=== PATIENT | female | born 1990 | race Caucasian/White ===

== ENCOUNTER 2017-03-28 18:05 | Emergency (ER) | payer OTHER ==
[2017-03-28 18:10] VITALS: RESP 16; TEMP 98.1
[2017-03-28] MEDS ORDERED: NS 1,000 ML IV ONE (18:24)
[2017-03-28] MEDS ORDERED: ONDANSETRON 4 MG/2 ML VIAL IVP ONE (18:25)
--- NOTE | 2017-03-28 18:39 | EDPHY ---
H & P Time Seen by Provider: 03/28/17 18:14 HPI/ROS: CHIEF COMPLAINT: HISTORY OF PRESENT ILLNESS: The patient is a 26-year-old female, , 14 weeks , presenting with continued vomiting since yesterday. Unable to tolerate oral fluids or food today. Associated with generalized weakness. She was seen at a clinic and had blood work done. She denies abdominal pain , diarrhea, vaginal bleeding, or fever. LMP December 27, 2016. REVIEW OF SYSTEMS: A comprehensive 10 point review of systems is otherwise negative aside from elements mentioned in the history of present illness. Past Medical/Surgical History: G1PO. Social History: , at bedside. [employer] student. Smoking Status: Never smoked Physical Exam: General Appearance: Alert, pleasant Eyes: Pupils equal and round, no conjunctival pallor or injection ENT, Mouth: Mucous membranes moist Neck: Normal inspection Respiratory: Lungs are clear to auscultation Cardiovascular: Regular rate and rhythm Gastrointestinal: Abdomen is soft and non-tender Neurological: A&O, nonfocal, normal gait Skin: Warm and dry, no rash Extremities: Nontender, no pedal edema Psychiatric: Mood and affect normal Constitutional: Initial Vital Signs Temperature (C) 36.7 C 03/28/17 18:08 Heart Rate 98 03/28/17 18:08 Respiratory Rate 16 03/28/17 18:08 Blood Pressure 100/62 03/28/17 18:08 O2 Sat (%) 100 03/28/17 18:08 O2 Delivery Mode Room Air Allergies/Adverse Reactions: No Known Allergies Allergy (Unverified 03/28/17 18:30) Home Medications: Medication Instructions Recorded Ondansetron Odt [Zofran Odt 4 mg 4 mg PO Q4 PRN #6 tab 03/28/17 (*)] Medical Decision Making ED Course/Re-evaluation: Patient, 14 weeks , presents with two days of vomiting. Patient received IV Zofran and fluids in the ED. She felt much better and was able to tolerate oral fluids well. Abdomen remained soft and nontender. She was discharged home with Zofran for ongoing symptoms. Differential Diagnosis: Differential diagnosis includes though it is not limited to appendicitis, cholecystitis, diverticulitis, pyelonephritis, bowel perforation, small bowel obstruction. - Data Points Laboratory Results: Laboratory Results 03/28/17 18:40 03/28/17 18:40 Sodium 136 mEq/L mEq/L (134-144) Potassium 3.9 mEq/L mEq/L (3.5-5.2) Chloride 105 mEq/L mEq/L (97-110) Carbon Dioxide 20 mEq/l L mEq/l (22-31) Anion Gap 11 mEq/L mEq/L (8-16) BUN 5 mg/dL L mg/dL (7-23) Creatinine 0.5 mg/dL L mg/dL (0.6-1.0) Estimated GFR > 60 Glucose 96 mg/dL mg/dL (70-100) Calcium 9.7 mg/dL mg/dL (8.5-10.4) Medications Given: Discontinued Medications Sodium Chloride (Ns) 1,000 mls @ 0 mls/hr IV ONCE ONE; Wide Open PRN Reason: Protocol Stop: 03/28/17 18:25 Last Admin: 03/28/17 18:45 Dose: 1,000 mls Ondansetron HCl (Zofran) 4 mg IVP EDNOW ONE Stop: 03/28/17 18:26 Last Admin: 03/28/17 18:45 Dose: 4 mg Departure - Departure Disposition: Home, Routine, Self-Care Clinical Impression: Vomiting Qualifiers: Vomiting type: unspecified Vomiting Intractability: non-intractable Nausea presence: with nausea Qualified Code(s): R11.2 - Nausea with vomiting, unspecified Condition: Good Instructions: Nausea and Vomiting in (ED) Additional Instructions: Take Zofran as directed for nausea and vomiting. Return to the Emergency Department for new or worsening symptoms. You have been referred to the talent solutions manager [employer] Developer, please schedule an appointment for any ongoing issues. You have also been referred to a primary care physician, please followup as needed. Referrals: Rosie Mijares MD [Medical Doctor] - As per Instructions ([employer]) Prescriptions: Ondansetron Odt [Zofran Odt 4 mg (*)] 4 mg PO Q4 PRN #6 tab PRN Reason: Nausea Report Scribed for: Marian Rasheed Report Scribed by: Sasha Jones Date of Report: 03/28/17 Time of Report: 18:33 Physician Review and Approval Statement: 03/28/17 18:33 Portions of this note were transcribed by a medical billing specialist. I personally performed the history, physical exam, and medical decision-making; and confirmed the accuracy of the information in the transcribed note.
[2017-03-28 19:12] LABS: ANION GAP 11 mEq/L (8-16); CALCIUM 9.7 mg/dL (8.5-10.4); CARBON DIOXIDE 20 mEq/l (22-31); CHLORIDE 105 mEq/L (97-110); CREATININE 0.5 mg/dL (0.6-1.0); GLOMERULAR FILTRATION RATE > 60; GLUCOSE 96 mg/dL (70-100); POTASSIUM 3.9 mEq/L (3.5-5.2); SODIUM 136 mEq/L (134-144)
[2017-03-28 19:46] VITALS: BP 96/61; PULSE 78; O2SAT 97
== END 2017-03-28 19:40 | disposition home or self-care (01) ==
DX: O21.1 Hyperemesis gravidarum with metabolic disturbance (principal); E86.9 Volume depletion, unspecified; Z3A.14 14 weeks gestation of pregnancy
CPT/HCPCS: 96374; J2405

== ENCOUNTER 2017-08-07 22:57 | Observation (INO) | payer OTHER | END 2017-08-07 23:48 | disposition home or self-care (01) | LOC: FLD 22:57 | PROVIDERS: ADMIT Advanced Practice Midwife; ATTEND Advanced Practice Midwife | DX: O99.89 Other specified diseases and conditions complicating pregnancy, childbirth and the puerperium (principal); R11.10 Vomiting, unspecified; Z3A.32 32 weeks gestation of pregnancy | CPT/HCPCS: G0378 ==

== ENCOUNTER 2017-08-17 12:25 | Observation (INO) | payer OTHER ==
[2017-08-17 14:50] LABS: COLOR YELLOW; LEUKOCYTE ESTERASE,URINE TRACE (NEGATIVE); NITRITE,URINE NEGATIVE (NEGATIVE)
[2017-08-17] MEDS ORDERED: ACETAMINOPHEN 500 MG TAB PO PRN (15:11)
[2017-08-17] MEDS ORDERED: LIDOCAINE 2% JELLY 5 ML TUBE TP ONE (15:30)
--- NOTE | 2017-08-17 16:07 | SOAPPROG ---
SOAP Progress Note Assessment/Plan: Assessment: 26yoG1 with IUP@33-3wks furuncle in groin Cat 1 FHR tracing uterine irritability- no evidence of PTL Plan: warm compresses sent to ED for I&D pelvic rest keep next sched 08/17/17 16:03 Subjective: Pt presents to L&D with complaints of groin pain. She states she has a lump in her groin that has been present for 3 days. She denies any fever/chills. She states this is really bad pain, unable to rate on the pain scale. She has not taken anything for the pain. She denies any OB complaints (denies any contractions, LOF, VB) she reports +FM. Objective: VSS - Time Spent With Patient Time Spent With Patient: 45 min spent with pt, greater than 50%, approx 25 min, was spent face to face with pt on counseling and coordination of care - Pending Discharge Pending Discharge Within 24 Hours: Yes Pending Discharge Date: 08/18/17 Pending Discharge Time: 11:00 Physical Exam - Physical Exam General Appearance: WD/WN, alert, no apparent distress Neck: supple Respiratory: normal breath sounds Cardiac/Chest: regular rate, rhythm Abdomen: non-tender, soft, other (gravid) Skin: normal color, warm/dry Lymphatic: other (right groin +fluctuant lump (7cm length by 3cm width)+ tenderness +erythema, no drainage) Neuro/Psych: no motor/sensory deficits, alert, normal mood/affect, oriented x 3 ICD10 Worksheet Patient Problems: Problems Problem Status Onset Furuncle of groin Acute Supervision of normal in third trimester Acute - ICD10 Problem Qualifiers (1) Furuncle of groin (2) Supervision of normal in third trimester
== END 2017-08-17 15:45 | disposition home or self-care (01) ==
LOC: FLD 12:25
PROVIDERS: ADMIT Advanced Practice Midwife; ATTEND Advanced Practice Midwife
DX: Z34.93 Encounter for supervision of normal pregnancy, unspecified, third trimester (principal); L02.224 Furuncle of groin; Z3A.33 33 weeks gestation of pregnancy
CPT/HCPCS: 59025; G0378

== ENCOUNTER 2017-08-17 15:50 | Emergency (ER) | payer OTHER ==
[2017-08-17 16:08] VITALS: TEMP 98.4
--- NOTE | 2017-08-17 16:56 | EDPHY ---
H & P Stated Complaint: ? Boil in left groin 33+3 weeks Time Seen by Provider: 08/17/17 16:55 HPI/ROS: HPI: This is a 26-year-old female who presents with Chief Complaint: ? Boil in left groin 33+3 weeks Location: Right groin Quality: Abscess Duration: 3 days Signs and Symptoms: No fever, no vaginal discharge, no vaginal bleeding, no pelvic cramping, no radiation, no discharge Timing: Worsening Severity: [id number] Context: Patient is , approximately 33 and 3 weeks was evaluated upset in OBGYN and baby was found to be in no distress. Urinalysis was unremarkable. Patient reports she has a right boil in her groin that has been worsening the last 3 days. She reports her some mild discomfort. Denies having any history of MRSA. No history of gestational diabetes. Modifying Factors: None Comment: ROS: see HPI Constitutional: No fever, no chills, no weight loss Eyes: No blurred vision Respiratory: No shortness of breath, no cough Cardiovascular: No chest pain Gastrointestinal: No nausea, no vomiting, no diarrhea Genitourinary: No dysuria Extremities: No myalgias Neurologic: No weakness, no numbness Skin: No rashes Hematologic: No bruising, no bleeding MEDICAL/SURGICAL/SOCIAL HISTORY: Medical history: Generally healthy. Does not take any regular medications. Surgical history: Denies Social history: . CONSTITUTIONAL: awake and alert, no obvious distress HEENT: Atraumatic and normocephalic, PERRL, EOMI. Tympanic membranes clear. Oropharynx clear, no exudate and moist pink mucosa. Airway patent. No lymphadenopathy. No meningismus. Cardiovascular: Normal S1/S2, regular rate, regular rhythm, without murmur rub or gallop. PULMONARY/CHEST: Symmetrical and nontender. Clear to auscultation bilaterally. Good air movement. No accessory muscle usage. ABDOMEN: Soft, nondistended, nontender, no rebound, no guarding, no peritoneal signs, no masses or organomegaly. No CVAT. PELVIC: normal external genitalia, 4 cm fluctuant abscess noted in right groin sparing the external labia; extremely tender to palpation. The exam was performed with a acquisition analyst. EXTREMITIES: 2/2 pulses, strength 5/5, no deformities, no clubbing, no cyanosis or edema. NEUROLOGICAL: no focal neuro deficits. GCS 15. SKIN: Warm and dry, no erythema. no rash. Good capillary refill. Source: Patient, Family () Exam Limitations: No limitations - Personal History LMP (Females 10-55): Current Tetanus/Diphtheria Vaccine: Unsure Current Tetanus Diphtheria and Acellular Pertussis (TDAP): Unsure - Medical/Surgical History Hx Asthma: No Hx Chronic Respiratory Disease: No Hx Diabetes: No Hx Cardiac Disease: No Hx Renal Disease: No Hx Cirrhosis: No Hx Alcoholism: No Hx HIV/AIDS: No Hx Splenectomy or Spleen Trauma: No Other PMH: pt denies history. - Social History Smoking Status: Never smoked Constitutional: Initial Vital Signs Temperature (C) 36.9 C 08/17/17 16:06 Heart Rate 69 08/17/17 16:06 Respiratory Rate 16 08/17/17 16:06 Blood Pressure 105/73 08/17/17 16:06 O2 Sat (%) 96 08/17/17 16:06 O2 Delivery Mode Room Air Allergies/Adverse Reactions: No Known Allergies Allergy (Verified 08/17/17 16:05) Home Medications: Medication Instructions Recorded Ondansetron Odt [Zofran Odt 4 mg 4 mg PO Q4 PRN #6 tab 03/28/17 (*)] Clindamycin HCl [Clindamycin] 300 mg PO TID #30 cap 08/17/17 Medical Decision Making Procedures: Procedure: Abscess drainage. The patient's abscess was located on the right groin. I obtained verbal consent from the patient to drain the abscess who was informed about the possibility of bleeding and pain. The abscess was incised with #11 scalpel and a 20 mL amount of foul smelling, purulent drainage was expressed. I irrigated the wound and placed some 1/4 inch iodoform packing. The patient tolerated the procedure well. The procedure was performed by myself. ED Course/Re-evaluation: Let topical applied, then local anesthetic approximately 6 mL of 1% lidocaine with epinephrine injected for adequate anesthesia. Wound culture obtained. Concern for MRSA; Clindamycin given after consulting attending 1/4 iodoform packing placed This patient was seen under the supervision of my secondary supervising physician. I evaluated care for this patient independently. Patient's presentation, labs/imaging, treatment and plan of care were discussed with secondary supervising physician. Differential Diagnosis: Differential diagnosis includes but is not limited to abscess. - Data Points Medications Given: Discontinued Medications Tetracaine/Epinephrine/Lidocaine (Let Gel Topical) 1 ea TP EDNOW ONE Stop: 08/17/17 17:06 Last Admin: 08/17/17 17:23 Dose: 1 ea Departure - Departure Disposition: Home, Routine, Self-Care Clinical Impression: Abscess of groin, right, Third trimester at less than 36 weeks Condition: Good Instructions: Abscess Follow-up (ED), Abscess (ED) Additional Instructions: Keep the dressing dry and in place for 48 hours until seen for abscess check with OBGYN. Take Tylenol 650 mg every 4 hours as needed for pain. Follow up with [facility] in 2 days at which time they will evaluate , remove the packing, and likely repacked until fully healed. Take Clindamycin antibiotic as directed until complete. Referrals: [facility] [Outside] - As per Instructions Prescriptions: Clindamycin HCl [Clindamycin] 300 mg PO TID #30 cap
[2017-08-17] MEDS ORDERED: LET GEL TOPICAL 1 EA SYR TP ONE (17:05)
[2017-08-17] MEDS ORDERED: CLINDAMYCIN 150 MG CAP PO ONE (18:06)
[2017-08-17 18:34] VITALS: BP 110/78; PULSE 95; RESP 18; O2SAT 98
== END 2017-08-17 18:34 | disposition home or self-care (01) ==
PROC: 0H9KXZZ Drainage of Right Lower Leg Skin, External Approach (ICD-10-PCS; principal; 2017-08-17)
DX: O99.713 Diseases of the skin and subcutaneous tissue complicating pregnancy, third trimester (principal); L02.214 Cutaneous abscess of groin; Z3A.36 36 weeks gestation of pregnancy

== ENCOUNTER 2017-09-04 01:42 | Observation (INO) | payer OTHER ==
[2017-09-04] MEDS ORDERED: ACETAMINOPHEN 500 MG TAB PO PRN (02:20)
[2017-09-04] MEDS: DOCUSATE SODIUM 100 MG CAP PO SCH ×2 (02:45→10:25)
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
== END 2017-09-04 11:00 | disposition home or self-care (01) ==
LOC: FLD 01:42
PROVIDERS: ADMIT Obstetrics & Gynecology; ATTEND Obstetrics & Gynecology
DX: O99.89 Other specified diseases and conditions complicating pregnancy, childbirth and the puerperium (principal); R53.1 Weakness; M25.50 Pain in unspecified joint; Z3A.36 36 weeks gestation of pregnancy
CPT/HCPCS: 59025; G0378

== ENCOUNTER 2017-09-30 03:47 | Observation (INO) | payer OTHER ==
--- NOTE | 2017-09-30 05:22 | OBPROG ---
Labor Progress Note Assessment/Plan: Assessment: cat 1 fhr contractions q7 minutes exam 80/0 cephalic denies bloody show Plan: discharge to home with instructions. fu friday. Labor precautions given. OK with POC 09/30/17 05:19 Subjective/Intrapartum Course: 09/30/17 05:19 Feeling regular contractions. Denies leaking and bleeding, feeling movement. - Contraction Pattern Assessment Current Contraction Pattern: Regular - FHR Assessment Gonzalez FHR (bpm): 135 FHR Pattern Variability: Moderate FHR Category: 1 - Physical Exam General Appearance: WD/WN, alert, no apparent distress Respiratory: chest non-tender, lungs clear, normal breath sounds Cardiac/Chest: regular rate, rhythm Abdomen: hypoactive bowel sounds Extremities: Taylor's sign (negative bilaterally) DTR- Lower Extremities: Knee (R): 1+, Knee (L): 1+ (no clonus) Skin: normal color, warm/dry Neuro/Psych: no motor/sensory deficits, alert, normal mood/affect, oriented x 3 Oxytocin Orders Assessment - Pre-Induction/Augmentation Assessment Gestational Age: 39 week(s) and 4 day(s) ICD10 Worksheet Patient Problems: Problems Problem Status Onset Joint pain Acute Weakness Acute
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
== END 2017-09-30 05:44 | disposition home or self-care (01) ==
LOC: FLD 03:47
PROVIDERS: ADMIT Advanced Practice Midwife; ATTEND Advanced Practice Midwife
DX: O47.1 False labor at or after 37 completed weeks of gestation (principal); Q51.810 Arcuate uterus; Z3A.39 39 weeks gestation of pregnancy
CPT/HCPCS: G0378 ×2

== ENCOUNTER 2017-09-30 12:45 | Inpatient (IN) | payer OTHER ==
[2017-09-30] MEDS ORDERED: EPSOM SALT 454 GM TP PRN (13:07)
[2017-09-30] MEDS ORDERED: OLIVE OIL 118 ML BTL MISC PRN (13:07)
[2017-09-30] MEDS ORDERED: AMMONIA AROMATIC 1 EACH AMP IH PRN (13:07)
[2017-09-30] MEDS ORDERED: OXYTOCIN 20 UNIT in LR 1,000 ML IV PRN (13:07)
[2017-09-30] MEDS ORDERED: TERBUTALINE SULFATE 1 MG/ML VIAL IV PRN (13:07)
[2017-09-30] MEDS ORDERED: LR 1,000 ML IV PRN (13:07)
[2017-09-30] MEDS ORDERED: fentaNYL 100 MCG/2 ML INJ IVP ONE (13:57)
[2017-09-30] MEDS ORDERED: LIDOCAINE 1% 300 MG/30 ML SDV ONE (13:58)
[2017-09-30] MEDS ORDERED: TERBUTALINE SULFATE 1 MG/ML VIAL ONE (13:59)
[2017-09-30] MEDS ORDERED: AMMONIA AROMATIC 1 EACH AMP IH ONE (13:59)
[2017-09-30] MEDS ORDERED: OXYTOCIN 10 UNIT/ML VIAL ONE (13:59)
[2017-09-30] MEDS ORDERED: OLIVE OIL 118 ML BTL ONE (13:59)
[2017-09-30] MEDS ORDERED: MISOPROSTOL 200 MCG TAB ONE (13:59)
[2017-09-30 14:04] LABS: PLATELET COUNT 166 10^3/uL (150-400)
[2017-09-30] MEDS ORDERED: fentaNYL 100 MCG/2 ML INJ ONE (14:04)
[2017-09-30] MEDS ORDERED: BUPIVACAINE 0.25% 30 ML SDV ONE (14:38)
[2017-09-30] MEDS ORDERED: fentaNYL 2MCG/ML/BUP 0.1% RTU 100 ML BAG EP ONE (14:38)
[2017-09-30] MEDS ORDERED: PHENYLEPHRINE HCL 100 MCG/ML SYR ONE (14:52)
[2017-09-30] MEDS ORDERED: NALOXONE HCL 0.4 MG/ML INJ IVP PRN (15:03)
[2017-09-30] MEDS ORDERED: METOCLOPRAMIDE 10 MG/2 ML VIAL IVP PRN (15:03)
[2017-09-30] MEDS ORDERED: PHENYLEPHRINE HCL 100 MCG/ML SYR IVP PRN (15:03)
[2017-09-30] MEDS ORDERED: ONDANSETRON 4 MG/2 ML VIAL IVP PRN (15:03)
--- NOTE | 2017-09-30 15:05 | PREANESOB ---
Anesthesia Allergies/Adverse Reactions: Allergy/AdvReac Type Severity Reaction Status Date / Time No Known Allergies Allergy Verified 09/30/17 04:30 Home Medications: Medication Instructions Recorded Ondansetron Odt [Zofran Odt 4 mg 4 mg PO Q4 PRN #6 tab 03/28/17 (*)] Clindamycin HCl [Clindamycin] 300 mg PO TID #30 cap 08/17/17 Visit Medications: Generic Name Dose Route Start Last Admin Trade Name Freilsa PRN Reason Stop Dose Admin Ammonia (Aromatic Spirit) 1 each 09/30/17 13:07 Ammonia Aromatic IH 10/10/17 13:06 ONCE PRN Fainting Lactated Ringer's 1,000 mls @ 0 mls/hr 09/30/17 13:07 Lr IV 10/01/17 13:06 PRN PRN SEE PROTOCOL CONDITIONS Protocol Per Protocol Oxytocin 20 unit/ Lactated 1,002 mls @ 150 mls/hr 09/30/17 13:07 Ringer's IV PRN PRN Post- bleeding Ibuprofen 600 mg 09/30/17 13:07 Motrin PO 03/29/18 13:06 Q6HRS PRN post , inflammation Magnesium Sulfate 454 gm 09/30/17 13:07 Epsom Salt TP 03/29/18 13:06 Q1H PRN perineal discomfort Perry Oil 118 ml 09/30/17 13:07 Sweet Oil MISC 03/29/18 13:06 ONCE PRN perineal massage Terbutaline Sulfate 0.25 mg 09/30/17 13:07 Brethine IV 03/29/18 13:06 ONCE PRN Tachysystole Discontinued Medications Generic Name Dose Route Start Last Admin Trade Name Freilsa PRN Reason Stop Dose Admin Ammonia (Aromatic Spirit) Confirm 09/30/17 13:59 Ammonia Aromatic Administered 09/30/17 14:00 Dose 1 each IH .STK-MED ONE Bupivacaine HCl Confirm 09/30/17 14:38 Sensorcaine 0.25% Sdv Administered 09/30/17 14:39 Dose 30 ml .ROUTE .STK-MED ONE Fentanyl 50 mcg 09/30/17 13:57 Sublimaze IVP 09/30/17 13:58 ONCE ONE Fentanyl Confirm 09/30/17 14:04 Sublimaze Administered 09/30/17 14:05 Dose 100 mcg .ROUTE .STK-MED ONE Fentanyl/Bupivacaine HCl Confirm 09/30/17 14:38 Fentanyl/Bupivacaine/Ns 2 Mcg/Ml 0.1% (Premix Administered 09/30/17 14:39 Dose 100 ml EP .STK-MED ONE Lidocaine HCl Confirm 09/30/17 13:58 Lidocaine Hcl 1% Administered 09/30/17 13:59 Dose 300 mg .ROUTE .STK-MED ONE Misoprostol Confirm 09/30/17 13:59 Cytotec Administered 09/30/17 14:00 Dose 800 mcg .ROUTE .STK-MED ONE Perry Oil Confirm 09/30/17 13:59 Sweet Oil Administered 09/30/17 14:00 Dose 118 ml .ROUTE .STK-MED ONE Oxytocin Confirm 09/30/17 13:59 Pitocin Administered 09/30/17 14:00 Dose 40 unit .ROUTE .STK-MED ONE Phenylephrine HCl Confirm 09/30/17 14:52 Neosynephrine Administered 09/30/17 14:53 Dose 1,000 mcg .ROUTE .STK-MED ONE Terbutaline Sulfate Confirm 09/30/17 13:59 Brethine Administered 09/30/17 14:00 Dose 1 mg .ROUTE .STK-MED ONE - Focused Exam Mallampati Score: Class 2 Labs: 09/30/17 13:40 Patient ABO/Rh O POSITIVE 09/30/17 13:40 - Plan Consent Signed and on Chart: Yes
[2017-09-30] MEDS ORDERED: fentaNYL 2MCG/ML/BUP 0.1% RTU 100 ML EP SCH (15:30)
[2017-09-30] MEDS ORDERED: LR 500 ML IV SCH (15:30)
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
[2017-09-30] MEDS ORDERED: SIMETHICONE 80 MG TAB CHEW PO PRN (20:01)
[2017-09-30] MEDS ORDERED: ACETAMINOPHEN 325 MG TAB PO PRN (20:01)
[2017-09-30] MEDS ORDERED: HYDROCODONE/APAP 5/325 TAB PO PRN (20:01)
[2017-09-30] MEDS ORDERED: HYDROCORTISONE 0.5% CREAM TP PRN (20:01)
--- NOTE | 2017-09-30 20:07 | OBDEL ---
Info Type: Vaginal Presentation at Delivery: Vertex L&D Analgesia/Anesthesia Type: Epidural GBS+: No Intrapartum Medications: Discontinued Medications Generic Name Dose Route Start Last Admin Trade Name Abraham PRN Reason Stop Dose Admin Fentanyl 50 mcg 09/30/17 13:57 09/30/17 14:07 Sublimaze IVP 09/30/17 13:58 50 mcg ONCE ONE Administration - Hospital Course Intrapartum: 09/30/17 18:38 Pt is feeling some contractions and left sided pelvic pain. She reports being very tired. Indications for Delivery: Spontaneous Labor Vaginal Delivery - Delivery Provider Delivery Physician/CNM: Vira Horne - Labor and Delivery Onset of Contractions Date: 09/30/17 Onset of Contractions Time: 12:30 Onset of Contractions Type: Spontaneous Rupture of Membranes Date: 09/30/17 Rupture of Membranes Time: 18:35 Rupture of Membranes Type: Artificial Amniotic Fluid Color: Clear Dilation Complete Date: 09/30/17 Dilation Complete Time: 18:35 Placenta Delivery Date: 09/30/17 Placenta Delivery Time: 19:30 Total Hours of Labor: 7 Non-surgical Procedures: Amniotomy Laceration: 2nd Degree, Other (Specify) (Left vaginal sulcus and left labial) Repair: 2-0, Vicryl Vaginal Sponge Count Correct: Yes Vaginal Needle Count Correct: Yes Vaginal Sweep Performed: Yes EBL: 350 Delivery Events: None - Medications Labor Augmentation/Induction Methods Used: None [place] Data TONI: 10/03/17 Gestational Age: 39 week(s) and 4 day(s) Gonzalez Delivery Date: 09/30/17 Delivery Time: 19:28 Sex of Infant: Male [place] Weight (gm): 2976.7 g Score (1 Min): 8 Score (5 Min): 9 ICD10 Worksheet Patient Problems: Problems Problem Status Onset Normal labor Acute (spontaneous vaginal delivery) Acute - ICD10 Problem Qualifiers (1) Normal labor (2) (spontaneous vaginal delivery)
[2017-09-30] MEDS: IBUPROFEN 600 MG TAB PO PRN (21:25)
[2017-10-01] MEDS: IBUPROFEN 600 MG TAB PO PRN ×3 (05:37→18:07)
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
--- NOTE | 2017-10-01 12:07 | OBPP ---
Progress Note Assessment/Plan: Assessment: PPD 1 s/p anemia Plan: routine care, iron BID 10/01/17 12:05 Subjective/ Course: 10/01/17 12:05 Pt doing ok. denies cramping. states she's urinating ok but the bladder doesn' t have good control. we discussed that is common initially but improves with time. bld is light. baby has latched well. Objective: 10/01/17 04:42 Patient ABO/Rh O POSITIVE 09/30/17 13:40 Temp Pulse Resp BP Pulse Ox 36.6 C 104 H 16 111/68 97 10/01/17 08:00 10/01/17 08:00 10/01/17 08:00 10/01/17 08:00 10/01/17 08:00 Uterine Position/Fundal Height: Umbilicus -1 Uterine Tone: Firm Physical Exam - Physical Exam Abdomen: non-tender, soft Skin: normal color, warm/dry Neuro/Psych: alert, normal mood/affect
[2017-10-01] MEDS: DOCUSATE SODIUM 100 MG CAP PO PRN (12:19)
[2017-10-01] MEDS: IRON POLYSAC/IRON HEME 28 MG TAB PO SCH (20:09)
[2017-10-01 21:37] VITALS: RESP 18
[2017-10-02] MEDS: IBUPROFEN 600 MG TAB PO PRN ×2 (00:01→09:38)
[2017-10-02 08:12] VITALS: BP 107/69; TEMP 98.2; O2SAT 96
[2017-10-02] MEDS: IRON POLYSAC/IRON HEME 28 MG TAB PO SCH (09:38)
[2017-10-02] MEDS: DOCUSATE SODIUM 100 MG CAP PO PRN (09:38)
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
[2017-10-02] MEDS ORDERED: FLU VACC QS 2017-18 (3YR+)/PF 0.5 ML SYR (FLUARIX QUAD) IM ONE (17:03)
[2017-10-02 18:33] VITALS: PULSE 94
== END 2017-10-02 17:45 | disposition home or self-care (01) | DRG 775 ==
LOC: FLD 12:45 → EEVIPCON 12:45 → FOB 21:45
PROVIDERS: ADMIT Obstetrics & Gynecology; ATTEND Obstetrics & Gynecology
DX: O70.1 Second degree perineal laceration during delivery (principal); Z37.0 Single live birth; Z3A.39 39 weeks gestation of pregnancy; Z23 Encounter for immunization
CPT/HCPCS: G0008; J2370; J3010; J3105

== ENCOUNTER 2017-11-07 09:13 | Day surgery (SDC) | payer OTHER ==
[2017-11-07] MEDS ORDERED: ceFAZolin 2 GM/SWFI 2 GM/20 ML SYR IVP ONE (10:10)
[2017-11-07] MEDS ORDERED: LIDOCAINE 1% 2 ML INJ ONE (10:24)
[2017-11-07] MEDS ORDERED: BUPIVACAINE/EPI 0.5% 30 ML SDV ONE (10:28)
--- NOTE | 2017-11-07 10:40 | PDHPUP ---
History & Physical Update H&P update statement: This history and physical update is based on an assessment of the patient which was completed after admission or registration (within 24 hours), but prior to the surgery/procedure. H&P update: H&P reviewed & patient examined, no change in patient's condition since H&P completed
[2017-11-07] MEDS ORDERED: PROPOFOL 200 MG/20 ML VIAL ONE ×2 (10:54→11:11)
--- NOTE | 2017-11-07 10:58 | PDANEPAE ---
ANE History of Present Illness left groin cyst excision ANE Past Medical History - Cardiovascular History Hx Hypertension: No Hx Arrhythmias: No Hx Chest Pain: No Hx Coronary Artery / Peripheral Vascular Disease: No Hx CHF / Valvular Disease: No Hx Palpitations: No - Pulmonary History Hx COPD: No Hx Asthma/Reactive Airway Disease: No Hx Recent Upper Respiratory Infection: No Hx Oxygen in Use at Home: No Hx Sleep Apnea: No - Neurologic History Hx Cerebrovascular Accident: No Hx Seizures: No Hx Dementia: No - Endocrine History Hx Diabetes: No - Renal History Hx Renal Disorders: No - Liver History Hx Hepatic Disorders: No - Neurological & Psychiatric Hx Hx Neurological and Psychiatric Disorders: No - Cancer History Hx Cancer: No - Congenital Disorder History Hx Congenital Disorders: No - GI History Hx Gastrointestinal Disorders: Yes Gastrointestinal History Comment: INTERMITTENT PAIN WITH BOWEL MOVEMENTS - Other Health History Other Health History: ANEMIA POST 09/2017 WAS PRESCRIBED IRON DID NOT TAKE - Chronic Pain History Chronic Pain: No - Surgical History Prior Surgeries: I&D LT GROIN CYST ANE Review of Systems Review of Systems: - Exercise capacity METS (RN): 4 METS ANE Patient History - Allergies Allergies/Adverse Reactions: No Known Allergies Allergy (Verified 09/30/17 04:30) - Home Medications Home medications: none Home Medications: NK [No Known Home Meds] 11/06/17 [Last Taken Unknown] - NPO status NPO Since - Liquids (Date): 11/07/17 NPO Since - Liquids (Time): 23:30 NPO Since - Solids (Date): 11/06/17 NPO Since - Solids (Time): 20:00 - Anes Hx Anes Hx: no prior problems - Smoking Hx Smoking Status: Never smoked ANE Labs/Vital Signs - Vital Signs Blood Pressure: 118/70 Heart Rate: 75 Respiratory Rate: 16 O2 Sat (%): 96 Height: 152 cm Weight: 49 kg ANE Physical Exam - Airway Neck exam: FROM Mallampati Score: Class 1 Mouth exam: normal dental/mouth exam - Pulmonary Pulmonary: no respiratory distress - Cardiovascular Cardiovascular: regular rate and rhythym - ASA Status ASA Status: I ANE Anesthesia Plan Anesthesia Plan: GA with mask
[2017-11-07] MEDS ORDERED: LIDOCAINE 2% 5 ML SDV ONE (11:09)
[2017-11-07] MEDS ORDERED: OXYCODONE/APAP 5/325 TAB PO PRN (11:13)
[2017-11-07] MEDS ORDERED: ONDANSETRON 4 MG/2 ML VIAL IVP PRN (11:13)
[2017-11-07] MEDS ORDERED: PROMETHAZINE HCL 25 MG/ML INJ IVP PRN (11:13)
[2017-11-07] MEDS ORDERED: NALOXONE HCL 0.4 MG/ML INJ IVP PRN (11:13)
[2017-11-07] MEDS ORDERED: ACETAMINOPHEN 500 MG TAB PO PRN (11:13)
[2017-11-07] MEDS ORDERED: fentaNYL 100 MCG/2 ML INJ IVP PRN (11:13)
[2017-11-07] MEDS ORDERED: HYDROCODONE/APAP 5/325 TAB PO PRN (11:13)
[2017-11-07] MEDS ORDERED: ALBUTEROL 3 ML DEYVIAL IH PRN (11:13)
[2017-11-07] MEDS ORDERED: LR 500 ML IV PRN (11:13)
--- NOTE | 2017-11-07 11:14 | POSTANESTH ---
Post Anesthetic Evaluation Cardiovascular Status: Normal, Stable Respiratory Status: Normal, Stable Level of Consciousness/Mental Status: Can Participate in Eval Pain Control: Adequate, Prn Tx Ordered Nausea/Vomiting Control: Adequate, Prn Tx Ordered Complications Possibly Related to Anesthesia: None Noted
--- NOTE | 2017-11-07 11:34 | POSTOPPROG ---
Post Op Note Date of Operation: 11/07/17 Surgeon: Sofie Jones Anesthesiologist: kassi Anesthesia: IV Sedation Pre-op Diagnosis: L groin abscess Post-op Diagnosis: same Indication: 26 yo with left groin abscess Procedure: excise 5x7x1 skin soft tissue to level of fascia Findings: large abscess Inf/Abcess present in the surg proc area at time of surgery?: Yes Depth: Superfical (Skin SQ) EBL: Minimal Specimen(s): micro and path
[2017-11-07] MEDS ORDERED: fentaNYL 100 MCG/2 ML INJ ONE (11:57)
--- NOTE | 2017-11-07 12:04 | GOP ---
[f rep st] OPERATIVE REPORT DATE OF OPERATION: 11/07/2017 SURGEON: Sofie Jones MD ANESTHESIA: Monitored anesthesia care with IV sedation. ANESTHESIOLOGIST: Alexandr Dixon MD PREOPERATIVE DIAGNOSIS: Left groin cyst. POSTOPERATIVE DIAGNOSIS: Left groin cyst. PROCEDURE PERFORMED: Excise left groin cyst to the level of the fascia. FINDINGS: A 7 x 1 cm. SPECIMENS: Pathology and microbiology. ESTIMATED BLOOD LOSS: 5 cc. INDICATIONS: The patient is a 26-year-old woman, who has developed a large cyst in her left groin po stpartum. Incision and drainage in the office was not adequate. DESCRIPTION OF PROCEDURE: Patient was brought into the operating room, placed supine on the table. Monitored anesthesia care with IV sedation was performed. She was placed in a frog-leg position. He r groin was prepped with Betadine and draped in the usual sterile fashion. I infiltrated the area wi th 14 cc of 0.5% Marcaine. I excised the abscess and all the tissue down to the level of the fascia. I submitted samples for microbiology and pathology. Hemostasis was achieved. I closed the inferio r area with 2-0 nylon. I packed the superior area, where it was more infected, with Chel, Hydrofer a Blue and a dressing was applied. She was awakened in the operating room, transferred to PACU in [facility] condition. /[id number]/MODL
[2017-11-07 12:32] VITALS: BP 100/74; O2SAT 97
[2017-11-07 13:52] VITALS: PULSE 89; RESP 16; TEMP 98.6
== END 2017-11-07 13:35 | disposition home or self-care (01) ==
LOC: FSGY 09:13
PROVIDERS: ATTEND Surgery
PROC: 0HBAXZZ Excision of Inguinal Skin, External Approach (ICD-10-PCS; principal; 2017-11-07 11:00)
DX: L72.0 Epidermal cyst (principal); L02.214 Cutaneous abscess of groin
CPT/HCPCS: J0690; J2704; J3010